=== PATIENT | male | born 2000 | race Caucasian/White ===

== ENCOUNTER 2020-01-30 07:41 | Outpatient (REF) | payer OTHER, SELFPAY | END 2020-01-30 07:42 | disposition home or self-care (01) | LOC: HO.LAB 07:41 | PROVIDERS: Visit Provider Internal Medicine | DX: Z20.828 Contact with and (suspected) exposure to other viral communicable diseases (principal) | CPT/HCPCS: U0003 ==

== ENCOUNTER 2021-06-06 20:24 | Emergency (ER) | payer OTHER, SELFPAY ==
[2021-06-06 20:42] VITALS: BP 143/80; PULSE 82; RESP 16; TEMP 37.1; O2SAT 98; BMI 41.2
[2021-06-06 21:08] LABS: Strep A Nucleic Acid Negative (Negative)
[2021-06-06 21:14] LABS: COVID-19 Test Negative (Negative); IDNOW Serial# 55D5AD1C
--- NOTE | 2021-06-06 21:24 | ED_ITS ---
HPI - URI/Sore Throat General Chief Complaint: Upper Respiratory Symptoms Stated Complaint: sore throat x3 days Time Seen by Provider: 06/06/21 21:20 Source: patient Mode of arrival: ambulatory Limitations: no limitations History of Present Illness HPI Narrative: This is a 20-year-old male no significant medical history presenting to the emergency department with 3 days of sore throat, fatigue and malaise progres sively worsening. Patient tells me that this came on suddenly and has been progressively worsening. He tells me it feels like his throat is burning when he swallows. Also pain when it trying to eat or drink. Patient tells me he is vaccinated against flu and COVID. He denies fevers, chills, cough, nausea, vomiting, chest pain, shortness of breath, abdominal pain, ear pain. He denies sick contacts. He is eating and drinking well. In appears to be in good spirits. MD elicited complaint: sore throat Onset (ago): day(s) (3) Consistency: constant Severity: moderate Able to tolerate fluids by mouth: Yes Exacerbating factors: swallowing Relieving factors: nothing Associated symptoms: denies other symptoms Treatments prior to arrival: none Related Data Previous Rx's Medication Instructions Recorded cephalexin 500 mg tablet 500 mg PO TID 7 Days #21 tab 06/06/21 prednisone 20 mg tablet 40 mg PO DAILY 5 Days #10 tab 06/06/21 Allergies Allergy/AdvReac Type Severity Reaction Status Date / Time No Known Allergies Allergy Unverified 12/15/19 16:56 [No Known Allergies*] Review of Systems Review of Systems: Constitutional : No Weight loss, No Fever, No Chills, + Fatigue, + Malaise ENT/Mouth : + sore throat, No Rhinorrhea Eyes: No Eye Pain, No Swelling, No Redness Cardiovascular : No Chest Pain, No SOB, No Dyspnea on Exertion, No Orthopnea, No Edema, No Palpitations Respiratory : No Cough, No Sputum, No Wheezing Gastrointestinal : No Nausea, No Vomiting, No Diarrhea, No Constipation, No abdominal Pain, No Hematochezia, No Melena Genitourinary : No Dysuria, No Urinary Frequency, No Hematuria, Musculoskeletal : No joint pain, No Myalgias, No Joint Swelling Skin : No Skin Lesions, No rash Neuro : No Weakness, No Numbness, No Dizziness, No Headache Psych : No Anxiety/Panic, No Depression All other systems reviewed and are negative Yes all other systems are reviewed and are negative [facility] Past Medical History Attestation statement: The following information was validated with the patient. Source: old records reviewed and nursing notes reviewed Social History Social History Advance Directives: No Physical Exam Vital Signs: Vital Signs: Last Vital Signs Temp 98.8 F 06/06/21 20:42 Pulse 82 06/06/21 20:42 Resp 16 06/06/21 20:42 BP 143/80 H 06/06/21 20:42 Pulse Ox 98 06/06/21 20:42 BMI result Body Mass Index 41.2 VSS Appearance: Alert.? Oriented X3.? No acute distress.? Head: Normocephalic, atraumatic, no step-offs or deformities Eyes: Pupils equal, round and reactive to light.? ENT: + bilateral tonsils edematous with slight erythema overlying them. No exudates. Uvula is midline. No evidence signs of peritonsillar abscess. Patient controlling secretions well. No cervical adenopathy or occipital adenopathy. Neck: Normal inspection.? Neck supple.? CVS: Normal heart rate and rhythm.? Pulses normal.? Respiratory: No respiratory distress.? Breath sounds normal.? Abdomen: Soft and nontender.? Skin: Skin warm and dry.? Normal skin color.? Normal skin turgor.? Extremities: No lower extremity edema.? No calf ttp. 5/5 strength to bilateral upper and lower extremities Back: No midline tenderness, no C-spine tenderness, full range of motion, no CVA tenderness bilaterally Neuro: Oriented X 3.? No motor deficit.? No sensory deficit. CN 2-12 intact Course Reevaluation(s) Reevaluation #1: COVID and strep negative. Will also do a mono spot to rule out mononucleosis. Patient will be discharged home on antibiotics and prednisone. Comfortable discharge home with PCP follow-up. Time: 21:28 MDM - URI/Sore Throat [facility] Narrative Medical decision making narrative: 2126 20 yo m no significant medical history presents with sore throat x3 days worsening. Worse with swallowing. Physical examination significant for bilateral tonsils edematous with slight erythema overlying them. No exudates. Uvula is midline. No evidence signs of peritonsillar abscess. Patient controlling secretions well. No cervical adenopathy or occipital adenopathy. Patient speaking with a normal voice no muffled voice. History and physical examination not consistent with peritonsillar abscess or epiglottitis. Likely tonsillitis. At this time will check patient for COVID, strep. Medical Records Attestation: I reviewed the patient's medical records. Lab Data Attestation: I reviewed the patient's lab results. Labs: Lab Results 06/06/21 06/06/21 Range/Units 20:41 20:41 COVID-19 (JOE) Negative (Negative) COVID-19 Clin Com See Note S. pyogenes GrpA VERO Negative (Negative) Critical Care Time Critical Care Time Critical Care Time: No Discharge Plan Discharge Clinical Impression: Pharyngitis Patient Disposition: Home, Self-Care Additional Instructions: Take your medications as prescribed. If you were prescribed antibiotics today, it is important that you take your medication to their entirety, do not skip any doses, do not finish them early. Follow-up with your primary care provider this week. Return to the emergency department with new or worsening symptoms. Such as fevers, chills, chest pain, shortness of breath, nausea, vomiting, dizziness, headache, vision changes, lethargy In case of emergency call 911 Prescriptions: New cephalexin 500 mg tablet 500 mg PO TID 7 Days Qty: 21 0RF prednisone 20 mg tablet 40 mg PO DAILY 5 Days Qty: 10 0RF Referrals: Physician,None [Primary Care Provider] - 2 days Stand Alone Forms: Work/School Release
[2021-06-06 21:47] LABS: Monotest Negative (Negative)
== END 2021-06-06 21:57 | disposition home or self-care (01) ==
PROVIDERS: Physician Assistant; Emergency Provider Emergency Medicine Emergency Medical Services
DX: J02.9 Acute pharyngitis, unspecified (principal); Z20.822 Contact with and (suspected) exposure to COVID-19
CPT/HCPCS: 36415; 86308; 87635; 87651; 99283

== ENCOUNTER 2022-01-07 00:25 | Emergency (ER) | payer OTHER, SELFPAY ==
[2022-01-07 00:58] VITALS: BP 168/93; PULSE 95; RESP 20; TEMP 37.3; O2SAT 98; BMI 45.0
[2022-01-07 01:50] VITALS: BP 119/55; PULSE 92; RESP 18; TEMP 36.7; O2SAT 99
--- NOTE | 2022-01-07 02:07 | PC.NURSE ---
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
[2022-01-07 03:37] VITALS: BP 129/69; PULSE 71; RESP 18; O2SAT 100
--- NOTE | 2022-01-07 04:04 | ED_ITS ---
HPI - Wound/Laceration General Chief Complaint: Wound/Laceration Stated Complaint: bleeding cyst Time Seen by Provider: 01/07/22 01:52 History of Present Illness HPI narrative: Patient is a 21-year-old male presents today with having a abscess that was opened up earlier this morning. Was given Keflex. Patient complaining of bleeding from the wound. Patient denies any history of being on blood thinners. No systemic complaints. No chest pain or shortness of breath no nausea no vom iting. Patient is from home. Related Data Previous Rx's Medication Instructions Recorded cephalexin 500 mg tablet 500 mg PO TID 7 days #21 tabs 06/06/21 prednisone 20 mg tablet 40 mg PO DAILY 5 days #10 tabs 06/06/21 Allergies Allergy/AdvReac Type Severity Reaction Status Date / Time No Known Allergies Allergy Unverified 12/15/19 16:56 [No Known Allergies*] Review of Systems Review of Systems: Positive bleeding from the site of incision Yes all other systems are reviewed and are negative [facility] Past Medical History Attestation statement: The following information was validated with the patient. Social History Social History Advance Directives: No Physical Exam Vital Signs: Vital Signs: Last Vital Signs Temp 98.0 F 01/07/22 01:50 Pulse 71 01/07/22 03:37 Resp 18 01/07/22 03:37 BP 129/69 01/07/22 03:37 Pulse Ox 100 01/07/22 03:37 O2 Del Method 01/07/22 03:37 BMI result Body Mass Index 45.0 Appearance: Alert. Oriented X3. No acute distress. Eyes: Pupils equal, round and reactive to light. ENT: Pharynx normal. Neck: Normal inspection. Neck supple. No lymph nodes noted. No crepitus CVS: Normal heart rate and rhythm. Pulses normal. Normal S1 and S2. Positive localized chest wound bleeding. No oozing small amount of blood. Respiratory: No respiratory distress. Breath sounds normal. No Wheezing. No rales Abdomen: Soft and nontender. No rigidity. No distention. good BS x4 Skin: Skin warm and dry. Normal skin color. Normal skin turgor. Extremities: No lower extremity edema. Neurovascular intact to all extremities. No Lacerations. No Rash Neuro: Oriented X 3. No motor deficit. No sensory deficit. Moving all extermities. No slurred speech MDM - Wound/Laceration MDM Narrative Medical decision making narrative: There is no silver nitrate. We subsequently tried to pack the wound with iodoform gauze is still is an abscess earlier documented from patient's discharge from Urgent Care. After the iodoform quarter-inch packing. Bleeding appears to have stopped. Will monitor patient's wound for at least another hour. Will have patient follow-up with urgent care on an outpatient basis. Patient is already on antibiotics. Medical Records Attestation: I reviewed the patient's medical records. Lab Data Attestation: I reviewed the patient's lab results. Discharge Plan Discharge Clinical Impression: Abscess Patient Disposition: Home, Self-Care Instructions: Abscess Follow-up (ED), Incision and Drainage (ED) Prescriptions: No Action cephalexin 500 mg tablet 500 mg PO TID 7 Days Qty: 21 0RF prednisone 20 mg tablet 40 mg PO DAILY 5 Days Qty: 10 0RF Referrals: Physician,None [Primary Care Provider] - (Follow-up with urgent care in ap proximately 24-48 hours. Uncontrolled bleeding come back to the emergency department.)
[2022-01-07 05:46] VITALS: BP 119/66; PULSE 66; RESP 18; O2SAT 97
--- NOTE | 2022-01-07 05:50 | PC.NURSE ---
Discharged instructions provided to pt. Pt verbalize understanding.
== END 2022-01-07 05:51 | disposition home or self-care (01) ==
PROVIDERS: Emergency Provider Emergency Medicine Emergency Medical Services
DX: L02.213 Cutaneous abscess of chest wall (principal); Z79.899 Other long term (current) drug therapy
CPT/HCPCS: 99283